=== PATIENT | female | born 1975 | race Caucasian/White ===

== ENCOUNTER 2019-05-05 17:14 | Outpatient (CLI) | payer OTHER, SELFPAY ==
--- NOTE | ~2019-05-05 | MM_ITS ---
EXAMINATION: MM screening [facility] BI w veda HISTORY: Screening mammogram TECHNIQUE: Craniocaudal and mediolateral oblique 3-D tomosynthesis images were obtained and synthetic 2-D images were generated. CAD analysis was submitted and interpreted. COMPARISON: 04/02/2018, 03/28/2017, 07/02/2014 BREAST PARENCHYMAL COMPOSITION: The breasts are extremely dense, which lowers the sensitivity of mamm ography. FINDINGS: RIGHT BREAST: There is a possible obscured mass in the middle third of the outer breast best apprecia christopher 6 cm from the nipple on craniocaudal tomosynthesis image 8/80. LEFT BREAST: There is no evidence of suspicious mass, calcification, or architectural distortion to s uggest malignancy. There has been no significant interval change. IMPRESSION: 1. Possible right breast mass. 2. Additional mammographic views and possible breast ultrasound are recommended. BI-RADS Category 0: Incomplete: Needs additional imaging evaluation. Reviewed, dictated and finalized at location A. RGLASS ROVING WINDER IMPRESSION: 1. Possible right breast mass. 2. Additional mammographic views and possible breast ultrasound are recommended . BI-RADS Category 0: Incomplete: Needs additional imaging evaluation.
== END 2019-05-05 17:15 | disposition home or self-care (01) ==
LOC: ANHIMG 17:16
PROVIDERS: PCP Family Medicine; Visit Provider Obstetrics & Gynecology Gynecology
DX: Z12.31 Encounter for screening mammogram for malignant neoplasm of breast (principal); R92.8 Other abnormal and inconclusive findings on diagnostic imaging of breast
CPT/HCPCS: 77063; 77067

== ENCOUNTER 2019-05-19 13:58 | Outpatient (CLI) | payer OTHER, SELFPAY ==
--- NOTE | ~2019-05-19 | MMUS_ITS ---
EXAMINATION: MM diagnostic mammo unilat RT, US breast RT limited HISTORY: Possible right breast mass on screening mammogram TECHNIQUE: Additional 3-D tomosynthesis images of the right breast were performed and synthetic 2-D i mages were generated. CAD analysis was submitted and interpreted. High resolution limited right breas t ultrasound was performed. COMPARISON: 05/05/2019, 04/02/2018, 03/28/2017 FINDINGS: MAMMOGRAPHIC FINDINGS: There is a 2.7 x 1.1 cm oval, obscured, low density mass in the middle third of the outer breast at t he 9:00 location 6 cm from the nipple. No suspicious architectural distortion or calcification are id entified. ULTRASOUND: There are multiple adjacent cysts at the 9:00 location 4 cm from the nipple corresponding to the mamm ographic finding in question. The largest measures up to 10 mm. There is a 7 mm x 4 mm oval, circumsc ribed, parallel, hypoechoic mass with no internal vascularity at the 9:00 location 4 cm from the nipp le. This appears to demonstrate posterior acoustic enhancement. IMPRESSION: 1. Multiple adjacent right breast cysts accounting for the mammographic finding in question. One mass at the 9:00 location 4 cm from the nipple has sonographic features suggestive of a complicated cyst. 2. Recommend 6 month follow-up targeted right breast ultrasound. BI-RADS category 3, probably benign findings. Reviewed, dictated and finalized at location A. SIVE SPRAYER IMPRESSION: 1. Multiple adjacent right breast cysts accounting for the mammographic finding in question. One mass at the 9:00 location 4 cm from the nipple has sonographi c features suggestive of a complicated cyst. 2. Recommend 6 month follow-up targeted right breast ultrasound. BI-RADS category 3, probably benign findings.
== END 2019-05-19 13:59 | disposition home or self-care (01) ==
LOC: ANHIMG 14:01
PROVIDERS: PCP Family Medicine; Visit Provider Obstetrics & Gynecology Gynecology
DX: R92.8 Other abnormal and inconclusive findings on diagnostic imaging of breast (principal)
CPT/HCPCS: 76642; 77065

== ENCOUNTER 2020-01-07 06:56 | Outpatient (NON) | payer OTHER, SELFPAY ==
[2020-01-08 13:59] LABS: SARS-CoV-2 RNA PCR Negative
== END 2020-01-07 06:57 ==
PROVIDERS: PCP Family Medicine; Visit Provider Physician Assistant
DX: Z20.828 Contact with and (suspected) exposure to other viral communicable diseases (principal); R09.81 Nasal congestion
CPT/HCPCS: 87635; C9803; U0003

== ENCOUNTER 2020-01-19 14:25 | Outpatient (CLI) | payer OTHER, SELFPAY ==
--- NOTE | ~2020-01-19 | US_ITS ---
US breast RT limited DATE: 01/19/2020 14:53 INDICATION: Six-month follow-up of 05/19/2019 and multiple adjacent right breast cysts including compl icated cyst at 9:00 TECHNIQUE: High-resolution ultrasound imaging targeted at 9:00 4 cm from nipple COMPARISON: 05/19/2019 limited right breast ultrasound FINDINGS: Multiple stable adjacent breast cysts individually measuring under 12 mm are again noted, w ith through transmission and posterior enhancement, no internal vascularity. No suspicious solid lesi on or shadowing is detected. IMPRESSION: BI-RADS Category 2: Benign Recommendation: Routine mammographic screening Reviewed, dictated and finalized at Location A. Reviewed, dictated and finalized at location A.
== END 2020-01-19 14:26 | disposition home or self-care (01) ==
LOC: ANHIMG 14:27
PROVIDERS: PCP Family Medicine; Visit Provider Obstetrics & Gynecology Gynecology
DX: R92.8 Other abnormal and inconclusive findings on diagnostic imaging of breast (principal)
CPT/HCPCS: 76642

== ENCOUNTER 2020-02-24 11:40 | Outpatient (NON) | payer OTHER, SELFPAY ==
[2020-02-26 17:04] LABS: SARS-CoV-2 RNA PCR Negative
== END 2020-02-24 11:41 ==
LOC: ANHCOVIDDT 11:41
PROVIDERS: PCP Family Medicine; Visit Provider Nurse Practitioner Family
DX: R05 Cough (principal); Z20.828 Contact with and (suspected) exposure to other viral communicable diseases
CPT/HCPCS: 87635; C9803; U0003

== ENCOUNTER 2020-09-06 08:18 | Outpatient (CLI) | payer OTHER, SELFPAY ==
--- NOTE | ~2020-09-06 | MM_ITS ---
EXAMINATION: MM screening [facility] BI w veda HISTORY: Screening mammogram TECHNIQUE: Craniocaudal and mediolateral oblique 3-D tomosynthesis images were obtained and synthetic 2-D images were generated. CAD analysis was submitted and interpreted. COMPARISON: 05/19/2019 diagnostic right mammogram and limited right breast ultrasound 05/05/2019, 04/02/2018, 03/28/2017 bilateral digital screening mammogram examinations BREAST PARENCHYMAL COMPOSITION: The breasts are extremely dense, which lowers the sensitivity of mamm ography. FINDINGS: Stable mild fibroglandular asymmetry. There is no evidence of suspicious mass, calcificatio n, or architectural distortion to suggest malignancy in either breast. There has been no suspicious i nterval change. IMPRESSION: 1. No mammographic evidence of malignancy. 2. Recommend routine screening mammography in one year. BI-RADS Category 2: Benign finding(s). Reviewed, dictated and finalized at location A.
== END 2020-09-06 08:19 | disposition home or self-care (01) ==
LOC: ANHIMG 08:21
PROVIDERS: PCP Family Medicine; Visit Provider Obstetrics & Gynecology Gynecology
DX: Z12.31 Encounter for screening mammogram for malignant neoplasm of breast (principal)
CPT/HCPCS: 77063; 77067

== ENCOUNTER 2021-09-07 16:16 | Outpatient (CLI) | payer OTHER, SELFPAY ==
--- NOTE | ~2021-09-07 | MM_ITS ---
EXAMINATION: MM screening [facility] BI w veda HISTORY: Screening mammogram TECHNIQUE: Craniocaudal and mediolateral oblique 3-D tomosynthesis images were obtained and synthetic 2-D images were generated. CAD analysis was submitted and interpreted. COMPARISON: 09/06/2020, 05/19/2019, 05/05/2019 BREAST PARENCHYMAL COMPOSITION: The breasts are extremely dense, which lowers the sensitivity of mamm ography. FINDINGS: There is no suspicious mass, calcification, or architectural distortion to suggest malignan cy in either breast. There has been no suspicious interval change. IMPRESSION: 1. No mammographic evidence of malignancy. 2. Recommend routine screening mammography in one year. BI-RADS Category 1: Negative Reviewed, dictated and finalized at location A.
== END 2021-09-07 16:17 | disposition home or self-care (01) ==
LOC: ANHIMG 16:19
PROVIDERS: PCP Family Medicine; Visit Provider Obstetrics & Gynecology Gynecology
DX: Z12.31 Encounter for screening mammogram for malignant neoplasm of breast (principal)
CPT/HCPCS: 77063; 77067

== ENCOUNTER 2021-10-13 10:46 | Outpatient (NON) | payer OTHER, SELFPAY ==
[2021-10-13 14:06] LABS: Crystals Synovial Fluid None Seen (None Seen)
[2021-10-13 14:07] LABS: Color Synovial Fluid Yellow (Colorless); Source Synovial Fluid Synovial fluid
[2021-10-13 14:08] LABS: Appearance Synovial Fluid Cloudy (Clear); Lymphocytes Synovial Fluid 9 %; Monocytes Synovial Fluid 1 %; Neutrophils Synovial Fluid 90 % (0-25); Nucleated Cell Synovial Fluid 8419 /uL (0-200); RBC Synovial Fluid 7710 /uL (0-0)
== END 2021-10-13 10:47 | disposition home or self-care (01) ==
PROVIDERS: PCP Family Medicine; Visit Provider Orthopaedic Surgery
DX: M25.562 Pain in left knee (principal)
CPT/HCPCS: 87070; 87075; 87205; 89051; 89060

== ENCOUNTER 2021-12-28 11:22 | Day surgery (SDC) | payer OTHER, SELFPAY ==
[2021-12-19 08:23] VITALS: BMI 33.9
[2021-12-28 11:45] VITALS: BP 133/89; PULSE 69; RESP 18; TEMP 36.6; O2SAT 100
[2021-12-28 12:01] VITALS: BMI 32.5
--- NOTE | 2021-12-28 12:03 | P.PNAN_ITS ---
Anes - Initial Pre Proc Eval Procedure: Operation Date: 12/28/21 13:00 Proposed Procedures p Screening Colonoscopy - Anthony Abrams MD Date/Time: 12/28/21 12:03 Surgeon: Anthony Abrams MD Pre Op Diagnosis: Neoplasm screening Patient Data Age: 46 Gender: F Height: 1.65 m Weight: 88.9 kg Allergies Allergy/AdvReac Type Severity Reaction Status Date / Time Sulfa (Sulfonamide Allergy Mild Hives Verified 12/28/21 11:57 Antibiotics) Home Medications Medication Instructions Recorded Confirmed Type sodium sul 1.479 gram-potas ch See Rx Instructions PO PER PKG DIR 09/04/21 12/19/21 Rx 0.188 gram-magnes sul 0.225 gram #24 tabs tablet (Sutab) lisinopril 10 mg tablet 10 mg PO DAILY 12/19/21 12/28/21 History Patient hx anesthesia problems: none Family hx anesthesia problems: none Results Review: All pre-operative results and documents have been reviewed as part of the pre- operative evaluation. [facility], [facility] Past Medical History Medical History Arthritis HTN (hypertension) Surgical History Surgical History H/O section H/O sinus surgery H/O sinus surgery Previous section Family History Family History Father Family history of cardiovascular disease Diabetes mellitus Grandparent Hypertension Father Cerebrovascular accident Grandparent Cerebrovascular accident Grandparent CHF (congestive heart failure) Grandparent Diabetes mellitus Grandparent Cerebrovascular accident Social History Social History Smoking status: Never smoker Alcohol intake: current Substance use: never Substance use type: does not use Living arrangements: with family Gender identity (if verbalized by the patient): Female Spiritual care concerns: No Anes - Eval Final PreProcedure Day of Procedure 12/28/21 12:03 Patient weight: obese Heart: regular rate and rhythm Lungs: clear to auscultation Airway: Mallampati scale class II Last oral intake: >/= 8 hours ASA classification: II Emergent: no Anesthetic plan: proceed Anesthesia type and monitoring: general GIVS and standard monitoring Results Review: All pre-operative results and documents have been reviewed as part of the pre- operative evaluation. Informed Consent: The patient's anesthetic plan and its attendant risks and benefits were discussed with the patient/family/POA. Questions were solicited and answers provided to the satisfaction of the patient/family/POA.
[2021-12-28] MEDS: LACTATED RINGERS 1,000 ML 150 ML IV CONT (12:06)
--- NOTE | 2021-12-28 12:20 | P.HP_ITS ---
History of Present Illness History of Present Illness Consent: Risks, benefits, and alternatives have been discussed and questions answered. Patient agrees to proceed with procedure. Chief complaint: Neoplasm screening Narrative: Omayra Delanye is a 46 year old female Presents for screening colonoscopy. Patient's current weight appetite and bowel movements are normal. Patient denies abdominal pain. She has had no bleeding. Family history is noncontribut ory. She presents today for neoplasia screening colonoscopy. Review of Systems Review of Systems: Review of systems noncontributory. [facility] Past Medical History Medical History Arthritis HTN (hypertension) Surgical History Surgical History H/O section H/O sinus surgery H/O sinus surgery Previous section Family History Family History Father Family history of cardiovascular disease Diabetes mellitus Grandparent Hypertension Father Cerebrovascular accident Grandparent Cerebrovascular accident Grandparent CHF (congestive heart failure) Grandparent Diabetes mellitus Grandparent Cerebrovascular accident Social History Social History Smoking status: Never smoker Alcohol intake: current Substance use: never Substance use type: does not use Living arrangements: with family Gender identity (if verbalized by the patient): Female Spiritual care concerns: No Meds Home Medications and Allergies Home Medications Medication Instructions Recorded Confirmed Type sodium sul 1.479 gram-potas ch See Rx Instructions PO PER PKG DIR 09/04/21 12/19/21 Rx 0.188 gram-magnes sul 0.225 gram #24 tabs tablet (Sutab) lisinopril 10 mg tablet 10 mg PO DAILY 12/19/21 12/28/21 History Allergies Allergy/AdvReac Type Severity Reaction Status Date / Time Sulfa (Sulfonamide Allergy Mild Hives Verified 12/28/21 11:57 Antibiotics) Vital Signs Vital Signs - 24 hr 12/28/21 11:45 Temperature 97.9 F Pulse Rate 69 Respiratory Rate 18 Blood Pressure 133/89 Pulse Oximetry 100 Oxygen Delivery Room Air Exam Narrative: Physical exam reveals patient to be alert. Vital signs stable. HEENT exam is unremarkable. Patient is anicteric. Lungs are clear to auscultation and percussion. Heart is without murmur or extra sounds. Abdomen bowel sounds present soft nontender with no organomegaly. Digital external rectal exam is normal. Assessment and Plan Assessment and plan (1) Encounter for screening colonoscopy: Code(s): Z12.11 - Encounter for screening for malignant neoplasm of colon Status: Acute Assessment and Plan: Patient presents for screening colonoscopy. Appears to be at average risk for colon polyps. Further recommendations may be given after endoscopy.
[2021-12-28 13:00] VITALS: BP 113/69; PULSE 61; RESP 18; O2SAT 100
[2021-12-28 13:10] VITALS: BP 118/76; PULSE 62; RESP 18; O2SAT 100
--- NOTE | 2021-12-28 13:13 | WPDANESPN ---
Anes - Prog Note Post-Op Date/Time: 12/28/21 13:13 Cardiovascular status: normal Respiratory status: normal Airway patency: baseline Mental status: baseline Post-Op hydration status: normal Vital Signs: Last Vital Signs Temp 36.6 C 12/28/21 11:45 Pulse 69 12/28/21 11:45 Resp 18 12/28/21 11:45 BP 133/89 12/28/21 11:45 Pulse Ox 100 12/28/21 11:45 O2 Del Method Room Air 12/28/21 11:45 Pain Score (VAS): 0 I/O: Intake & Output 12/27/21 12/28/21 12/28/21 23:59 07:59 15:59 Intake Total 200 Balance 200 Patient Feedback: Patient satisfied with anesthetic care.
[2021-12-28 13:20] VITALS: BP 125/72; PULSE 74; RESP 18; O2SAT 100
== END 2021-12-28 13:34 | disposition home or self-care (01) ==
PROVIDERS: Visit Provider Internal Medicine Gastroenterology
PROC: 0DJD8ZZ Inspection of Lower Intestinal Tract, Via Natural or Artificial Opening Endoscopic (ICD-10-PCS; CPT 45378; principal; 2021-12-28 13:00)
DX: Z12.11 Encounter for screening for malignant neoplasm of colon (principal)
CPT/HCPCS: 45378

== ENCOUNTER 2022-11-23 21:40 | Emergency (ER) | payer OTHER, SELFPAY ==
[2022-11-23 21:51] VITALS: BP 114/61; PULSE 69; RESP 18; TEMP 36.4; O2SAT 100
--- NOTE | 2022-11-24 00:36 | PC.NURSE ---
Patient approached intake desk and informed database report writer that she is feeling better and doesn't want to be seen anymore. Glass Presser removed patient's EMS IV intact. Patient alert and ambulatory out of ED doors with her .
== END 2022-11-24 00:36 | disposition left against medical advice (07) ==
LOC: ANHED 11-24 00:38
PROVIDERS: PCP Family Medicine
DX: R55 Syncope and collapse (principal)
CPT/HCPCS: 99199

== ENCOUNTER 2023-04-06 07:44 | Outpatient (CLI) | payer OTHER, SELFPAY ==
--- NOTE | ~2023-04-06 | MM_ITS ---
EXAMINATION: MM screening [facility] BI w veda HISTORY: Screening mammogram TECHNIQUE: Craniocaudal and mediolateral oblique 3-D tomosynthesis images were obtained and synthetic 2-D images were generated. CAD analysis was submitted and interpreted. COMPARISON: 09/07/2021, 09/06/2020, 05/19/2019, 05/05/2019 BREAST PARENCHYMAL COMPOSITION: The breasts are extremely dense, which lowers the sensitivity of mamm ography. FINDINGS: RIGHT BREAST: An asymmetry is present in the far posterior third of the lower breast 10 cm from the n ipple on the mediolateral oblique view. LEFT BREAST: No suspicious mass, calcification, or architectural distortion are identified to suggest malignancy. There has been no suspicious interval change. IMPRESSION: 1. Right breast asymmetry. 2. Additional mammographic views and possible breast ultrasound are recommended. BI-RADS Category 0: Incomplete: Needs additional imaging evaluation. Reviewed, dictated and finalized at location A. ERN CARRIER IMPRESSION: 1. Right breast asymmetry. 2. Additional mammographic views and possible breast ultrasound are recommended . BI-RADS Category 0: Incomplete: Needs additional imaging evaluation.
== END 2023-04-06 07:45 | disposition home or self-care (01) ==
PROVIDERS: PCP Family Medicine; Visit Provider Obstetrics & Gynecology Gynecology
DX: Z12.31 Encounter for screening mammogram for malignant neoplasm of breast (principal); R92.8 Other abnormal and inconclusive findings on diagnostic imaging of breast
CPT/HCPCS: 77063; 77067

== ENCOUNTER 2023-05-03 09:57 | Outpatient (CLI) | payer OTHER, SELFPAY ==
--- NOTE | ~2023-05-03 | MMUS_ITS ---
EXAMINATION: MM diagnostic [facility] RT w veda, US breast RT complete HISTORY: Abnormal mammogram. TECHNIQUE: Additional 3-D tomosynthesis images of the right breast were performed and synthetic 2-D i mages were generated. CAD analysis was submitted and interpreted. High resolution complete right [address] st ultrasound was performed. COMPARISON: Comparison to multiple prior studies sequentially, with oldest reviewed study dated 05/2018. BREAST PARENCHYMAL COMPOSITION: Dense: The breasts are extremely dense, which lowers the sensitivity of mammography. FINDINGS: MAMMOGRAPHIC FINDINGS: There are no suspicious masses, calcifications or architectural distortion in the right breast to sug gest malignancy. There is focal superimposed fibroglandular content in the lower posterior aspect of the right breast on MLO and medial lateral view. ULTRASOUND: Complete dorsally US of all 4 quadrants of the right breast and retroareolar region was reviewed. The re are multiple cysts scattered throughout the right breast, largest measuring 9 mm. No suspicious ma sses to suggest malignancy. IMPRESSION: 1. No evidence for malignancy in the right breast. Benign findings. 2. Routine yearly screening mammogram and regular clinical breast examination are recommended. BI-RADS Category 2: Benign finding(s). Reviewed, dictated and finalized at location A. HANDISE ASSOCIATE IMPRESSION: 1. No evidence for malignancy in the right breast. Benign findings. 2. Routine yearly screening mammogram and regular clinical breast examination a re recommended. BI-RADS Category 2: Benign finding(s).
== END 2023-05-03 09:58 | disposition home or self-care (01) ==
LOC: ANHIMG 09:59
PROVIDERS: PCP Family Medicine; Visit Provider Obstetrics & Gynecology Gynecology
DX: R92.8 Other abnormal and inconclusive findings on diagnostic imaging of breast (principal)
CPT/HCPCS: 76641; 77061; 77065; G0279

== ENCOUNTER 2023-07-09 08:48 | Emergency (ER) | payer OTHER, SELFPAY ==
[2023-07-09 09:03] VITALS: BP 141/82; PULSE 77; RESP 16; TEMP 36.4; O2SAT 98
--- NOTE | 2023-07-09 09:44 | ED.URI ---
HPI - URI/Sore Throat General Chief Complaint: Upper Respiratory Infection Stated Complaint: Cough/Nausea/Fatigue Time Seen by Provider: 07/09/23 09:29 Source: patient, RN notes reviewed and old records reviewed Mode of arrival: ambulatory Limitations: no limitations History of Present Illness HPI Narrative: 48-year-old female who presents to [facility] care with complaints of dry cough,congestion and fatigue on last week 6 days ago which continues with body aches, nausea, and felt feverish starting on Saturday. Patient reports that she took a home COVID test on Saturday which was negative. Patient reports that she has felt some dizziness the past few days also with cough and exertion. Patient reports that she has been taking katlin selzer cold and flu for her symptoms. 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 MD elicited complaint: cough, rhinorrhea, nasal congestion and other ( body aches,fatigue) Pertinent past history: sinusitis and other (sinus problems) Onset (ago): day(s) (6) Pain scale (0-10): 4 Description of mucous: clear Able to tolerate fluids by mouth: Yes Treatments prior to arrival: other (Zyrtec, katlin [place] cold and flu) Related Data Allergies Allergy/AdvReac Type Severity Reaction Status Date / Time Sulfa (Sulfonamide Allergy Mild Hives Verified 07/09/23 09:21 Antibiotics) Review of Systems Review of Systems: CONSTITUTIONAL: reports malaise, chills, sweats, no recorded fever. but has felt feverish EYES: Denies visual changes, redness, or discharge. ENT: Reports rhinorrhea, congestion, sinus pain, no otalgia and no sore throat. CARDIOVASCULAR: Denies chest pain, palpitations, or edema. RESPIRATORY: Reports cough.? Denies dyspnea. GASTROINTESTINAL: Denies abdominal pain, nausea, vomiting, diarrhea SKIN: Denies rash or itching. MUSCULOSKELETAL: Reports myalgia. NEUROLOGIC: Denies headache.some dizziness reported All systems reviewed & are unremarkable except as noted in HPI and below PMFSH Past Medical History Medical History (Updated 07/10/23 @ 16:15 by Carmencita Miles NP) Arthritis History of sinus problem HTN (hypertension) Surgical History Surgical History H/O section H/O sinus surgery H/O sinus surgery Previous section Family History Family History Father Family history of cardiovascular disease Diabetes mellitus Grandparent Hypertension Father Cerebrovascular accident Grandparent Cerebrovascular accident Grandparent CHF (congestive heart failure) Grandparent Diabetes mellitus Grandparent Cerebrovascular accident Social History Social History Smoking status: Never smoker Alcohol intake: current Substance use: never Substance use type: does not use Living arrangements: with family Occupation/Education: occupation Gender identity (if verbalized by the patient): Female Spiritual care concerns: No Comments At time of signature, agree with nursing past medical, surgical, social and family history. There is no relevant family history pertinent to the presenting complaint Exam Narrative: GENERAL: Well-appearing, well-nourished, and in no acute distress. HEAD: Normocephalic EYES: PERRLA, conjunctivae clear ENT: Nares clear, turbinates edematous and erythematous, clear discharge. Mucous membranes moist. TM pearly hopper with dull light reflex bilaterally; no tragal tenderness. Oropharynx erythematous without lesions. Tonsils not enlarged and without exudate, no drooling, no hoarseness, no trismus, uvula midline.post nasal drainage noted NECK: Supple. No lymphadenopathy CHEST: Clear to auscultation, breath sounds equal. No wheezing, rhonchi, rales, or stridor. No respiratory distress, speaks in full sentences.cough S
== END 2023-07-09 10:14 | disposition home or self-care (01) ==
PROVIDERS: Emergency Provider Registered Nurse; PCP Family Medicine
DX: R05.1 Acute cough (principal); J06.9 Acute upper respiratory infection, unspecified; Z20.822 Contact with and (suspected) exposure to COVID-19; M19.90 Unspecified osteoarthritis, unspecified site; I10 Essential (primary) hypertension
CPT/HCPCS: 87426; 87804; 99213; G0463

== ENCOUNTER 2024-04-09 16:08 | Outpatient (CLI) | payer OTHER, SELFPAY ==
--- NOTE | ~2024-04-09 | MM_ITS ---
EXAMINATION: MM screening [facility] BI w veda HISTORY: Screening TECHNIQUE: Craniocaudal and mediolateral oblique 3-D tomosynthesis images were obtained and synthetic 2-D images were generated. CAD analysis was submitted and interpreted. COMPARISON: Comparison to multiple prior studies sequentially, with oldest reviewed study dated 07/2019. BREAST PARENCHYMAL COMPOSITION: Dense: The breasts are extremely dense, which lowers the sensitivity of mammography. FINDINGS: There are developing asymmetries in the upper outer quadrant of the left breast, middle thi rd. There is developing asymmetry medially in the right breast on CC view. IMPRESSION: 1. Developing bilateral breast asymmetries. 2. Additional mammographic views and possible breast ultrasound are recommended. BI-RADS Category 0: Incomplete: Needs additional imaging evaluation. Reviewed, dictated and finalized at location B. SHIFTER IMPRESSION: 1. Developing bilateral breast asymmetries. 2. Additional mammographic views and possible breast ultrasound are recommended . BI-RADS Category 0: Incomplete: Needs additional imaging evaluation.
== END 2024-04-09 16:09 | disposition home or self-care (01) ==
LOC: ANHIMG 16:09
PROVIDERS: PCP Family Medicine; Visit Provider Obstetrics & Gynecology Gynecology
DX: Z12.31 Encounter for screening mammogram for malignant neoplasm of breast (principal); R92.8 Other abnormal and inconclusive findings on diagnostic imaging of breast
CPT/HCPCS: 77063; 77067

== ENCOUNTER 2024-04-28 12:42 | Outpatient (CLI) | payer OTHER, SELFPAY ==
--- NOTE | ~2024-04-28 | MMUS_ITS ---
EXAMINATION: US breast BI complete, MM diagnostic khoi BI w veda HISTORY: Follow-up bilateral breast asymmetries TECHNIQUE: Additional 3-D tomosynthesis images of the breasts were performed and synthetic 2-D images were generated. CAD analysis was submitted and interpreted. High resolution bilateral complete breas t ultrasound was performed. COMPARISON: Comparison to multiple prior studies sequentially, with oldest reviewed study dated 05/2018. BREAST PARENCHYMAL COMPOSITION: Dense: The breasts are heterogeneously dense, which may obscure small masses FINDINGS: MAMMOGRAPHIC FINDINGS: Focal asymmetry medially in the right breast on CC view is less apparent with spot compression views. No discrete mass identified. No architectural distortion or suspicious calcifications. Left breast a symmetries in the upper outer quadrant of the left breast are less apparent with spot compression vie ws, likely superimposed fibroglandular tissue. No discrete mass or architectural distortion. ULTRASOUND: Complete US of all 4 quadrants of the breast/s and retroareolar region was reviewed. Right breast: There are multiple cysts of the right breast. At 3:00, 2 cm from the nipple there is an oval parallel oriented mass measuring 9 mm with internal soft tissue component. No internal vascular ity or posterior features. At 9:00, 4 cm from the nipple there is oval hypoechoic mass with low level internal echoes measuring 5 mm cyst. Left breast: There are multiple cysts of the left breast. No suspicious masses to suggest malignancy. IMPRESSION: 1. Probable benign right breast masses at 3:00, 2 cm from the nipple and 9:00, 4 cm from the nipple. No evidence for malignancy in the left breast. 2. Recommend 6 month follow-up diagnostic right mammogram and Limited right breast ultrasound BI-RADS category 3, probably benign findings. Reviewed, dictated and finalized at location A. AND DETONATOR IMPRESSION: 1. Probable benign right breast masses at 3:00, 2 cm from the nipple and 9:00, 4 cm from the nipple. No evidence for malignancy in the left breast. 2. Recommend 6 month follow-up diagnostic right mammogram and Limited right nicole ast ultrasound BI-RADS category 3, probably benign findings.
--- OUTSIDE RECORDS SUMMARY | 2024-04-28 13:17 | XMS_ITS | Clinical Summary ---
Author Organization [facility] Address [address] [place] [address] Care Team Providers Care Ski Top Trimmer Name Role Phone Néstor Ruiz MD, Miguel Logan Primary Care Provi sylvain Unavailable Source Comments [facility],non-owned Affiliates and Associated Physician Practices is amultiple site organization consisting of ambulatory clinics and hospital sitesin [place], [place], [place] and [place]. This disclosure is being madepursuant to the Care Everywhere program and may not contain all information available regarding this patient. Last updated 17.[facility] Allergies Active Allergy Reactions Criticality Noted Date Comments Sulfa Drugs Rash Medium 05/21/2017 Medications Be aware that medications may not be up to date on this document. Always verify current medications with the patient. No known medications Family History Medical History Relation Name Comments Diabetes - Type 2 Father Relation Name Status Comments Father Mother Alive Social History Tobacco Use Types Packs/Day Years Used Date Smoking Tobacco: Never Smokeless Tobacco: Never Sex and Gender Information Value Date Recorded Sex Assigned at Not on file Gender Identity Not on file Sexual Orientation Not on file Last Filed Vital Signs Vital Sign Reading Time Taken Comments Blood Pressure 120/88 10/16/2018 2:06 PM CDT Pulse 75 10/16/2018 2:06 PM CDT Temperature 37.2 ??C (98.9 ??F) 10/16/2018 2:06 PM CD T Respiratory Rate 16 10/16/2018 2:06 PM CDT Oxygen Saturation 98% 10/16/2018 2:06 PM CDT Inhaled Oxygen Concentration - - Weight 85.7 kg (189 lb) 10/16/2018 2:06 PM CDT Height 163.8 cm (5' 4.5 ) 10/16/2018 2:06 PM CDT Body Mass Index 31.94 10/16/2018 2:06 PM CDT Plan of Treatment Health Maintenance Due Date Last Done Comments COLOGUARD (AGES 45-75) - COL ON CA SCREENING 1976 COLON MONITORING 1976 COLONOSCOPY - COLON CA SCREENING 1976 CT COLONOGRAPHY - COLON CA SCREENING 1976 Colorectal Cancer Screening 1976 FIT - COLON CA SCREENING 1976 FLEX SIG - COLON CA SCREENING 1976 LIPID TESTING 1976 MAMMOGRAM 1976 PAP SMEAR 1976 HIV SCREENING 01/21/1991 HEPATITIS C SCREENING 01/17/1994 DTAP/TDAP/TD VACCINES (1 - Tdap) 01/21/1995 HEPATITIS B VACCINE (1 of 3 - 19+ 3-dose series) 01/21/1995 SCREENING FOR DIABETES 10/16/2018 COVID-19 VACCINE (1 - 2023-2 5 season) 2023 INFLUENZA VACCINE (#1) 2023 DEPRESSION SCREENING 04/01/2024 ZOSTER VACCINE (1 of 2) 01/21/2026 HIB VACCINE Aged Out No longer eligi ble based on patient's age to complete this topic HPV VACCINE Aged Out No longer eligi ble based on patient's age to complete this topic MENINGOCOCCAL (Group B) VACCINE Aged Out No longer eligible based on patient's age to complete this topic MENINGOCOCCAL VACCINE Aged Out No ramya capo eligible based on patient's age to complete this topic PNEUMOCOCCAL VACCINE Aged Out No long er eligible based on patient's age to complete this topic Care Teams Ski Top Trimmer Relationship Specialty Start Date End Date Miguel Palm Jr., MD PCP - General 09/15/19
--- OUTSIDE RECORDS SUMMARY | 2024-04-28 13:17 | XMS_ITS | Patient Health Summary ---
Author Organization [facility] [employer] Address [address] [place] [address] Care Team Providers Care Wire Drawing Die Maker Name Role Phone Néstor Ruiz MD, Miguel Logan Primary Care Provi sylvain Unavailable Note from [facility],non-owned Affiliates and Associated Physician Practices is amultiple site organization consisting of ambulatory clinics and hospital sitesin [place], [place], [place] and [place]. This disclosure is being madepursuant to the Care Everywhere program and may not contain all information available regarding this patient. Last updated 17.[facility] Allergies * Sulfa Drugs(Rash) -Medium Criticality Medications Be aware that medications may not be up to date on this document. Always verify current medications with the patient. No known medications Social History Tobacco Use Types Packs/Day Years [...] Mass Index 31.94 10/16/2018 2:06 PM CDT Procedures * STREP A SCREEN - POINT OF CARE (AMB) STL(Performed 10/16/2018) Performed for Acute pharyngitis, unspecified etiology * INFLUENZA A+B - POINT OF CARE (AMB)(Performed 05/21/2017) Performed for Nasopharyngitis acute * CULTURE RESPIRATORY UPPER(Performed 05/21/2017) Performed for Nasopharyngitis acute * STREP A SCREEN - POINT OF CARE (AMB) STL(Performed 05/21/2017) Performed for Nasopharyngitis acute * CT FACIAL BONES WO CONTRAST(Performed 12/09/2013) * CT FACIAL BONES WO CONTRAST(Performed 06/10/2013) * PATHOLOGY TISSUE(Performed 03/17/2013) * HCG BLOOD QUALITATIVE(Performed 03/17/2013) * PATHOLOGY/GENETICS HISTORICAL-ONBASE(Performed 03/17/2013) * PROTEIN ELECTROPHORESIS WO INTERP BLOOD(Performed 02/25/2013) * PATHOLOGY TISSUE(Performed 02/09/2013) * CULTURE FUNGUS OTHER+FUNGUS SMEAR(Performed 02/09/2013) * CULTURE ANAEROBE(Performed 02/09/2013) * CULTURE AEROBIC(Performed 02/09/2013) * FUNGUS SMEAR(Performed 02/09/2013) * GRAM STAIN SMEAR(Performed 02/09/2013) * HCG BLOOD QUALITATIVE(Performed 02/09/2013) * PATHOLOGY/GENETICS HISTORICAL-ONBASE(Performed 02/09/2013) Results * STREP A SCREEN - POINT OF CARE (AMB) STL (10/16/2018) Only the most recent of2 resultswithin the time period is included. Strep A Rapid POCT Negative Negative Strep A Internal Control Present Lot # [id number] Expiration Date 02 29 2020 Throat ENTIRE THROAT (SURFACE REGION OF NECK) / Unknown 10/16/2018 Alexander Burgess APRN-PEDIATRIC SURGEON LAB - POINT OF CA RE ORDERABLES * INFLUENZA A+B - POINT OF CARE (AMB) (05/21/2017 12:00 PM HEMODIALYSIS CHARGE NURSE) Influenza A Antigen Rapid Negative Negative Influenza B Antigen Rapid Negative Negative Influenza Internal Control present NEGATIVE - POSITIVE Influenza Lot Number [id number] Influenza Expiration Date 01 21 2019 Other NASOPHARYNGEAL SWAB / Unknown 05/21/2017 12:00 PM HEMODIALYSIS CHARGE NURSE Alexander Burgess APRN-PEDIATRIC SURGEON LAB - POINT OF CA RE ORDERABLES * CULTURE RESPIRATORY UPPER (05/21/2017 11:59 AM HEMODIALYSIS CHARGE NURSE) Upper Respiratory Culture Final report [facility] ACCOUNT BILL Result 1 [facility] ACCOUNT BILL Comment:Routine respiratory marion Microbiology ENTIRE THROAT (SURFACE REGION OF NECK) / Unknown 05/21/2017 11:59 AM HEMODIALYSIS CHARGE NURSE 05/21/2017 Narrative Resulting Agency Comment [facility] [address] ??[facility] [phone] Alexander Burgess APRN-PEDIATRIC SURGEON LAB - MICROBIOLOG Y ORDERABLES [facility] ACCOUNT BILL [address] [place] [address] * CT FACIAL BONES WO CONTRAST (12/09/2013 12:47 PM CDT) Only the most recent of2 resultswithin the time period is included. Anatomical Region Laterality Modality Head Other Impressions 12/09/2013 4:08 PM CDT IMPRESSION: 1. Unchanged post operative appearance of Meza-Sukhi approach right maxillary antrostomy for removal of a reported right maxillary odontogenic keratocyst as described above. This report was approved ??by Carey Livingston M.D. ?? on 12/09/2013 2:07 PM . I, Dr. ANUEL ELIZALDE M.D. have personally reviewed and interpreted this examination/study. This report was electronically signed by ANUEL ELIZALDE M.D. ??on 12/09/2013 4:08 PM . 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 TECHNIQUE: CT of the maxillofacial bones, orbits, and paranasal sinuses was performed without contrast according to standard protocol. FINDINGS: Comparison is made to prior study dated 06/10/2013. Postoperative appearance of Meza-Sukhi approach right maxillary antrostomy for removal of a reported right maxillary sinus odontogenic keratocyst demonstrates unchanged residual moderate mucosal thickening within the right maxillary sinus as well as residual thickening within the anterior right maxilla in continuity with the maxillary sinus likely representing granulation tissue or fibrosis with dystrophic calcification following resection. Small areas of dehiscence in the posterolateral wall of the right maxillary sinus with preserved fat in the adjacent buccal space are redemonstrated. The remaining paranasal sinuses are clear. The orbits appear normal. The mandible and temporomandibular joints appear normal. ??The nasal septum is midline. The left ostiomeatal unit is open. The mastoid air cells are clear. Procedure Note Anuel Elizalde MD - 06/29/2017 EXAMINATION: Computed tomography (CT) of the maxillofacial bones, orbits,and paranasal sinuses without contrast HISTORY: 38-year-old female with reported odontogenic keratocyst of theright maxillary sinus status post removal 03/17/2013. TECHNIQUE: CT of the maxillofacial bones, orbits, and paranasal sinuseswas performed without contrast according to standard protocol. FINDINGS: Comparison is made to prior study dated 06/10/2013. Postoperative appearance of Meza-Sukhi approach right maxillaryantrostomy for removal of a reported right maxillary sinus odontogenickeratocyst demonstrates unchanged residual moderate mucosal thickeningwithin the right maxillary sinus as well as residual thickening within the anterior right maxilla in continuity withthe maxillary sinus likely representing granulation tissue or fibrosiswith dystrophic calcification following resection. Small areas ofdehiscence in the posterolateral wall of the right maxillary sinus with preserved fat in the adjacent buccal space areredemonstrated. The remaining paranasal sinuses are clear. The orbitsappear normal. The mandible and temporomandibular joints appear normal.The nasal septum is midline. The left ostiomeatal unit is open. The mastoid air cells are clear. IMPRESSION IMPRESSION: 1. Unchanged post operative appearance of Meza-Sukhi approach rightmaxillary antrostomy for removal of a reported right maxillary odontogenickeratocyst as described above. This report was approved by Carey Livingston M.D. on 12/09/2013 2:07 PM. I, Dr. ANUEL ELIZALDE M.D. have personally reviewed and interpreted thisexamination/study. This report was electronically signed by ANUEL ELIZALDE M.D. on 12/09/20134:08 PM . Donta Orellana MD CT ORDERABLES * PATHOLOGY TISSUE (03/17/2013 9:33 AM HEMODIALYSIS CHARGE NURSE) Only the most recent of2 resultswithin the time period is included. AP Surg () [facility] Comment: CLINICAL HISTORY: The patient is a 38-year-old woman with history of sinus mass. FINAL DIAGNOSIS: BONE, ANTERIOR MAXILLA, BIOPSY (A): - ??BENIGN TOOTH, RIGHT MAXILLARY, EXCISION (B): - CARIES (GROSS ONLY) BONE, RIGHT MAXILLA, RESECTION (C): - ??BENIGN ODONTOGENIC CYST WITH FIBROSIS GROSS DESCRIPTION: The specimens are received in three containers for gross and microscopic examination, labeled with the patient's name Omayra Delaney . Specimen A anterior maxillary face content consists of multiple white to brown-suarez bony fragments and intermixed soft tissue with an aggregate measurement of 2.0 x 1.1 x 0.2 cm. ??The specimen is unoriented. ??It is wrapped in tissue paper and submitted in toto in cassette A1. Specimen B right maxillary tooth consists of a 1.5 x 1.0 x 0.7 cm white-suarez tooth and root with brown-suarez soft tissue and dental caries. ??This is for gross examination only. Specimen C right maxillary content consists of multiple soft, white-suarez, unoriented tissue fragments with an aggregate measurement of 6.0 x 4.5 x 0.5 cm. ??A veterans employment representative section is submitted in cassette C1. AJ/edk MICROSCOPIC DESCRIPTION: Specimen A shows a fragment of benign bone with normal trabeculae and osteocytes within their lacunae. ??There are no masses or bone sclerosis identified. Specimen C shows remnants of an odontogenic cyst surrounded by chronic inflammation and dense fibrotic tissue. ??There is no malignancy present. JOHN/SHERI/carlak The performance characteristics of all immunohistochemical and indirect immunofluorescence stains (if any) cited in this report were determined by the [facility] of [facility] in compliance with CLIA '88 regulations. ??Some of these tests rely on the use of analyte-specific reagents and are subject to specific labeling requirements by the FDA. ??Such tests were developed by the [facility] and have not been cleared or approved by the FDA. ??The FDA has determined that such clearance or approval is not necessary. These tests are used for clinical purposes and should not be regarded as investigational or for research. This case has been personally reviewed and interpreted by the attending (teaching) pathologist. Final Diagnosis performed by Luke Urbano MD. Electronically signed 03/20/2013 03/17/2013 9:33 AM HEMODIALYSIS CHARGE NURSE 03/17/2013 12:15 PM HEMODIALYSIS CHARGE NURSE Narrative [facility] - 03/20/2013 2:29 PM HEMODIALYSIS CHARGE NURSE PRE-OP DIAGNOSIS: ??Sinus mass 784.2 OPERATIVE PROCEDURE / FINDINGS: ??Procedure(s) with comments: RIGHT SULEMAN VILLASENOR - 33077 POST-OP DIAGNOSIS: * No post-op diagnosis entered * Collection Date->03/17/13 Collection Time-> 9:33 AM Specimen A->Other Anterior maxillary face Content Specimen B->Other Right Maxillary Tooth - Gross Only Specimen C->Other Right Maxillary Content Donta Orellana MD LAB - PATHOLOGY/CYTO LOGY ORDERABLES [address] [phone] * HCG BLOOD QUALITATIVE (03/17/2013 6:01 AM HEMODIALYSIS CHARGE NURSE) Only the most recent of2 resultswithin the time period is included. NEGATIVE NEGATIVE [facility] Comment:PERFORMED BY: ANDRES ANDINO 03/17/2013 6:01 AM HEMODIALYSIS CHARGE NURSE 03/17/2013 11:02 AM HEMODIALYSIS CHARGE NURSE Donta Orellana MD LAB - CHEMISTRY GEM ROJAS [address] [phone] * PATHOLOGY/GENETICS HISTORICAL-ONBASE (03/17/2013) Only the most recent of2 resultswithin the time period is included. 03/17/2013 Narrative [facility] - 04/21/2013 9:03 AM HEMODIALYSIS CHARGE NURSE Historical Provider LAB - CHEMISTRY O RDERABLES [facility] [address] [place] [address], [facility] * PROTEIN ELECTROPHORESIS WO INTERP BLOOD (02/25/2013 11:50 AM HEMODIALYSIS CHARGE NURSE) Interpretation Serum Protein SEE NOTE [facility] Comment: 1. Serum protein electrophoresis shows characteristic bands corresponding to albumin, alpha and beta globulins and polyclonal immunoglobulins. ?? 2. No monoclonal immunoglobulins detected. ??Non-secretory myeloma (NSM) and light chain only myeloma cannot be excluded on the basis of this result. ??Recommend serum free light chain measurements for complete evaluation of multiple myeloma. ??Measurement of serum free kappa and lambda immunoglobulin light chains can identify all patients with light chain only myeloma and up to 70% of patients with NSM. The serum free light chain measurement can be performed using this specimen by calling the Special Chemistry Laboratory at [phone]. Dr. Memo Emerson, PhD. Total Protein 7.2 6.0 - 8.3 g/dL [facility] Albumin 4.1 3.3 - 5.6 G/DL [facility] Alpha-1 Globulins 0.2 0.1 - 0.3 G/DL [facility] Alpha-2 Globulins 0.8 0.5 - 1.0 G/DL [facility] Beta Globulins 1.0 0.6 - 1.1 G/DL [facility] Gamma Globulins 1.1 0.6 - 1.6 G/DL [facility] Venous blood specimen (specimen) 02/25/2013 11:50 AM HEMODIALYSIS CHARGE NURSE 02/25/2013 1:02 PM HEMODIALYSIS CHARGE NURSE Chinyere Mejia FINANCIAL ASSISTANCE ADVISOR-PEDIATRIC SURGEON LAB - CHEMIS TRY ORDERABLES Performing Organization Address [facility]/ZIP Co de Phone Number [facility] [address] [place] [address], [facility] [phone] * CULTURE FUNGUS OTHER+FUNGUS SMEAR (02/09/2013 3:30 PM HEMODIALYSIS CHARGE NURSE) Culture Fungus-Other NO GROWTH FUNGI. [facility] Fluid specimen (specimen) SINUS / Unknown 02/09/2013 3:30 PM HEMODIALYSIS CHARGE NURSE 02/10/2013 12:45 PM HEMODIALYSIS CHARGE NURSE Narrative [facility] - 03/10/2013 11:21 AM HEMODIALYSIS CHARGE NURSE Right Maxillary Sinus Specimen Type->Body fluid, unspecified RT.MAXILLARY SINUS WRITTEN PER ANAEROBE AND FUN ADDED PER PROTCOL/JL 02/10/13 SPECIMEN COLLECTED ON 02/09/13,BUT DIDNT GET TO MICRO UNTIL 02/10/13/JL 02/10/13 SPECIMEN WERE IN O.R. ALL NIGHT PER AL IN O.R./JL 02/10/13 Donta Orellana MD LAB - MICROBIOLOGY O RDERABLES [address] [phone] * CULTURE AEROBIC (02/09/2013 3:30 PM HEMODIALYSIS CHARGE NURSE) Culture Routine LIGHT GROWTH OF GRAM POSITIVE COCCI IDENTIFIED [COAG NEG STAPH SPECIES]. ADDITIONAL MODERATE GROWTH OF GRAM NEGATIVE BACILLI IDENTIFIED [HAEMOPHILUS INFLUENZAE]. [facility] Culture Results [facility] Organism ID HAEMOPHILUS INFLUENZAE [facility] Comment:HAEMOPHILUS INFLUENZ AE Organism ID COAG NEG STAPH SPECIES [facility] Comment:COAG NEG STAPH SPECI ES Sinus SINUS / Unknown 02/09/2013 3 :30 PM HEMODIALYSIS CHARGE NURSE 02/10/2013 11:42 AM HEMODIALYSIS CHARGE NURSE Narrative [facility] - 02/13/2013 10:31 AM HEMODIALYSIS CHARGE NURSE Right Maxillary Sinus Specimen Type->Sinus RT.MAXILLARY SINUS WRITTEN PER SWABS/JL 02/10/13 GRAMSTAIN ADDED PER PROTOCOL AND ALSO SPECIMEN COLLECTED ON 02/09/13 BUT DIDNT GET TO MICRO UNTIL 02/10/13/JL 02/10/13 Organism Antibiotic Method Susceptibility Haemophilus influenzae Beta-Lactamase CULTURE AEROBIC Sensitive Comment: (R) RESISTANT RESULT: ORGANISM IS BETA-LACTAMASE POSITIVE. (S) SENSITIVE RESULT: ORGANISM IS BETA LACTAMASE NEGATIVE. BETA-LACTAMASE POSITIVE RESULTS PREDICT RESISTANCE TO AMOXICILLIN AND AMPICILLIN. RARE BETA-LACTAMASE NEGATIVE AMPICILLIN RESISTANT STRAINS OF HEMOPHILUS INFLUENZA EXIST, AND CANNOT BE RULED OUT WITH BETA-LACTAMASE TESTING. Coagulase negative Staphylococcus Clindamycin CULTURE AEROBIC 1: Intermediate Coagulase negative Staphylococcus Erythromycin CULTURE AEROBIC >=8: Resistant Coagulase negative Staphylococcus Gentamicin CULTURE AEROBIC <=0.5: Sensitive Coagulase negative Staphylococcus Levofloxacin CULTURE AEROBIC 0.25: Sensitive Coagulase negative Staphylococcus Oxacillin CULTURE AEROBIC <=0.25: Sensitive Coagulase negative Staphylococcus Tetracycline CULTURE AEROBIC <=1: Sensitive Coagulase negative Staphylococcus Trimethoprim-sulfametho xazole CULTURE AEROBIC <=10: Sensitive Coagulase negative Staphylococcus Vancomycin CULTURE AEROBIC 1: Sensitive Donta Orellana MD LAB - MICROBIOLOGY O BALDEMAR Performing Organization Address [facility] Co de Phone Number [address] [phone] * GRAM STAIN SMEAR (02/09/2013 3:30 PM HEMODIALYSIS CHARGE NURSE) Gram Stain MANY POLYMORPHONUCLEAR CELLS, MODERATE RED BLOOD CELLS, MANY GRAM POSITIVE COCCI IN PAIRS AND CHAINS, MANY GRAM NEGATIVE BACILLI, MANY GRAM POSITIVE BACILLI. GRAM STAINS ARE ROUTINELY SCREENED FOR THE PRESENCE OF POLYMORPHONUCLEAR CELLS. [facility] Culture Results [facility] Sinus 02/09/2013 3:30 PM HEMODIALYSIS CHARGE NURSE 02/10/2013 11:42 AM HEMODIALYSIS CHARGE NURSE Narrative [facility] - 02/10/2013 2:45 PM HEMODIALYSIS CHARGE NURSE RT.MAXILLARY SINUS WRITTEN PER SWABS/JL 02/10/13 GRAMSTAIN ADDED PER PROTOCOL AND ALSO SPECIMEN COLLECTED ON 02/09/13 BUT DIDNT GET TO MICRO UNTIL 02/10/13/JL 02/10/13 Donta Orellana MD LAB - MICROBIOLOGY O BALDEMAR Performing Organization Address [facility] [place] [address], [facility] [phone] * FUNGUS SMEAR (02/09/2013 3:30 PM HEMODIALYSIS CHARGE NURSE) Fungus Smear NO FUNGI SEEN. [facility] Fluid specimen (specimen) 02/09/2013 3:30 PM HEMODIALYSIS CHARGE NURSE 02/10/2013 12:45 PM HEMODIALYSIS CHARGE NURSE Narrative [facility] - 02/11/2013 1:14 PM HEMODIALYSIS CHARGE NURSE RT.MAXILLARY SINUS WRITTEN PER ANAEROBE AND FUN ADDED PER PROTCOL/JL 02/10/13 SPECIMEN COLLECTED ON 02/09/13,BUT DIDNT GET TO MICRO UNTIL 02/10/13/JL 02/10/13 SPECIMEN WERE IN O.R. ALL NIGHT PER AL IN O.R./JL 02/10/13 Donta Orellana MD LAB - MICROBIOLOGY O BALDEMAR Performing Organization Address [facility] Co de Phone Number [address] [phone] * CULTURE ANAEROBE (02/09/2013 3:30 PM HEMODIALYSIS CHARGE NURSE) Culture Anaerobic AEROBIC GROWTH COMPATIBLE WITH ROUTINE CULTURE. NO GROWTH ANAEROBES AFTER 48 HOURS. AFTER 72 HOURS HEAVY GROWTH OF ANAEROBIC GRAM NEGATIVE BACILLI IDENTIFIED [PREVOTELLA INTERMEDIA]. [facility] Culture Results [facility] Organism ID PREVOTELLA INTERMEDIA [facility] Comment:PREVOTELLA INTERMEDI A Fluid specimen (specimen) SINUS / Unknown 02/09/2013 3:30 PM HEMODIALYSIS CHARGE NURSE 02/10/2013 12:45 PM HEMODIALYSIS CHARGE NURSE Narrative [facility] - 02/16/2013 1:50 PM HEMODIALYSIS CHARGE NURSE Right Maxillary Sinus Specimen Type->Body fluid, unspecified RT.MAXILLARY SINUS WRITTEN PER ANAEROBE AND FUN ADDED PER PROTCOL/JL 02/10/13 SPECIMEN COLLECTED ON 02/09/13,BUT DIDNT GET TO MICRO UNTIL 02/10/13/ 02/10/13 SPECIMEN WERE IN O.R. ALL NIGHT PER AL IN O.R./JL 02/10/13 Organism Antibiotic Method Susceptibility Prevotella intermedia Beta-Lactamase CULTURE ANAEROBE Resistant Comment: (R) RESISTANT RESULT: ORGANISM IS BETA-LACTAMASE POSITIVE. (S) SENSITIVE RESULT: ORGANISM IS BETA LACTAMASE NEGATIVE. BETA-LACTAMASE POSITIVE RESULTS PREDICT RESISTANCE TO PENICILLIN AND AMPICILLIN. ANAEROBES CAN BE RESISTANT TO THESE 2 AGENTS BY MECHANISMS OTHER THAN BETA-LACTAMASE PRODUCTION, SO A NEGATIVE RESULT DOES NOT RULE OUT RESISTANCE. Donta Orellana MD LAB - MICROBIOLOGY O BALDEMAR Performing Organization Address [facility]/ZIP Co de Phone Number [address] [phone] Care Teams Wire Drawing Die Maker Relationship Specialty Start Date End Date Miguel Palm Jr., MD PCP - General 09/15/19
--- OUTSIDE RECORDS SUMMARY | 2024-04-28 13:17 | XMS_ITS | Clinical Summary ---
Author Organization [facility] Address [address] [place] [address] Phone Care Team Providers Care Line Welder Name Role Phone Aba Dahl MD Primary Care Provider Allergies Active Allergy Reactions Criticality Noted Date Comments Sulfa Antibiotics Rash 03/12/2020 Medications LISINOPRIL PO Take by mouth. Active azithromycin (Zithromax Z-Rodrigo) 250 MG TabletIndication s:Acute sinusitis, recurrence not specified, unspecified location 2 tab(s) daily for 1 day, then 1 tab(s) daily for days 2-5. 6 Tab 03/12/2020 Active fluticasone (FLONASE) 50 MCG/ACT SuspensionIndica tions:Acute sinusitis, recurrence not specified, unspecified location 1-2 Sprays by Nasal route daily. Use in each nostril as directed. 1 Bottle 03/12/2020 Active Active Problems No known active problems Encounters Date Type Department Care Team Description 03/22/2024 Telephone [facility] Call [facility] [address] [place] [phone] Aba Dahl MD Eye Problem from Last 3 Months Social History Tobacco Use Types Packs/Day Years Used Date Smoking Tobacco: Never Smokeless Tobacco: Never Comments No Sex and Gender Information Value Date Recorded Sex Assigned at Not on file Legal Sex Female 3:23 AM GARBAGE TRUCK HEL[employer] Gender Identity Not on file Sexual Orientation Not on file Last Filed Vital Signs Vital Sign Reading Time Taken Comments Blood Pressure 130/68 03/12/2020 4:44 PM G[employer]BAGE TR[employer] HELPER Pulse 97 03/12/2020 4:44 PM GARBAGE TRUCK HELPER Temperature 36.6 ??C (97.8 ??F) 03/12/2020 4:44 PM CS T Respiratory Rate 16 03/12/2020 4:44 PM GARBAGE TRUCK HELPER Oxygen Saturation 98% 03/12/2020 4:44 PM GARBAGE TRUCK HELPER Inhaled Oxygen Concentration - - Weight 89.8 kg (198 lb) 03/12/2020 4:44 PM GARBAGE TRUCK HELPER Height - - Body Mass Index - - Plan of Treatment Health Maintenance Due Date Last Done Comments Hepatitis C Virus (HCV) Screening 1976 TdaP Immunization 1976 Hepatitis B Immunization (1 of 3 - 19+ 3-dose series) 01/21/1995 Pap Smear 01/21/1997 Cervical Cancer Screening (CCS) 01/21/2006 HPV/Cotest 01/21/2006 Discussion re Starting/Frequ ency of Mammograms 2016 Colonoscopy 01/21/2021 Colorectal Cancer Screening 01/21/2021 Influenza Immunization (#1) 2023 SARS-COV-2 Immunization ( - 2023- season) 2023 Respiratory Syncytial Virus (RSV) Immunization (Adult) (1 - 1-dose 75+ series) 01/21/2051 Meningococcal Immunization (ACWY) Aged Out No longer eligible based on patient's age to complete this topic Pneumococcal Immunization Combined Aged Out No longer eligible based on patient's age to complete this topic Rotavirus Immunization Aged Out No lo nger eligible based on patient's age to complete this topic Care Teams Line Welder Relationship Specialty Start Date End Date Aba Dahl MD [address] [place] [address] PCP - General Family Medicine 03/12/20
--- OUTSIDE RECORDS SUMMARY | 2024-04-28 13:17 | XMS_ITS | Referral Summary ---
Author Organization [facility] Address [address] [facility] [place] [address] Care Team Providers Care Sales Account Coordinator Name Role Phone Néstor Ruiz MD, Miguel Logan Primary Care Provi sylvain Unavailable Source Comments [facility],non-owned Affiliates and Associated Physician Practices is amultiple site organization consisting of ambulatory clinics and hospital sitesin [place], [place], [place] and [place]. This disclosure is being madepursuant to the Care Everywhere program and may not contain all information available regarding this patient. Last updated 17.[facility] Allergies Active Allergy Reactions Criticality Noted Date [...] 10/16/2018 2:06 PM CDT Plan of Treatment Not on file Care Teams Sales Account Coordinator Relationship Specialty Start Date End Date Miguel Palm Jr., MD PCP - General 09/15/19
== END 2024-04-28 12:43 | disposition home or self-care (01) ==
PROVIDERS: PCP Family Medicine; Visit Provider Nurse Practitioner Women's Health
DX: R92.8 Other abnormal and inconclusive findings on diagnostic imaging of breast (principal)
CPT/HCPCS: 76641; 77062; 77066; G0279

== ENCOUNTER 2024-10-28 10:25 | Outpatient (CLI) | payer OTHER, SELFPAY ==
--- NOTE | ~2024-10-28 | MMUS_ITS ---
EXAMINATION: MM diagnostic khoi RT w veda, US breast RT limited HISTORY: Dense: The breasts are heterogeneously dense, which may obscure small masses TECHNIQUE: Additional 3-D tomosynthesis images of the right breast were performed and synthetic 2-D i mages were generated. CAD analysis was submitted and interpreted. High resolution Limited right breas t ultrasound was performed. COMPARISON: Comparison to multiple prior studies sequentially, with oldest reviewed study dated 10/2020. BREAST PARENCHYMAL COMPOSITION: Dense: The breasts are extremely dense, which lowers the sensitivity of mammography. FINDINGS: MAMMOGRAPHIC FINDINGS: There are no suspicious masses, calcifications or architectural distortion in the right breast. No si gnificant interval change. ULTRASOUND: Limited right breast ultrasound: At 3:00, 2 cm from the nipple there is an oval hypoechoic 8mm mass w ithout significant change from prior examination. There is parallel orientation, no internal vascular ity and no significant posterior features. At 9:00, 4 cm from the nipple there is a 6 mm cyst. IMPRESSION: 1. Stable likely benign right breast mass. 2. Recommend 6 month follow-up bilateral mammogram and Limited right breast ultrasound. BI-RADS category 3, probably benign findings. Reviewed, dictated and finalized at location B. IMPRESSION: 1. Stable likely benign right breast mass. 2. Recommend 6 month follow-up bilateral mammogram and Limited right breast ult rasound. BI-RADS category 3, probably benign findings.
--- OUTSIDE RECORDS SUMMARY | 2024-10-28 11:04 | XMS_ITS | Clinical Summary ---
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 Gender Identity Not on file Sexual Orientation Not on file Last Filed Vital Signs Vital Sign Reading Time Taken Comments Blood Pressure 130/68 03/12/2020 4:44 PM BOX TRUCK DRIVER Pulse 97 03/12/2020 4:44 PM BOX TRUCK DRIVER Temperature 36.6 C (97.8 F) 03/12/2020 4:44 PM BOX TRUCK DRIVER Respiratory Rate 16 03/12/2020 4:44 PM BOX TRUCK DRIVER Oxygen Saturation 98% 03/12/2020 4:44 PM BOX TRUCK DRIVER Inhaled Oxygen Concentration - - Weight 89.8 kg (198 lb) 03/12/2020 4:44 PM BOX TRUCK DRIVER Height - - Body Mass Index - - Plan of Treatment Health Maintenance Due Date Last Done Comments Hepatitis C Virus (HCV) Screening 1975 Mammogram 1975 TdaP Immunization 1976 Hepatitis B Immunization (1 of 3 - 19+ 3-dose series) 01/21/1995 Pap Smear 01/21/1997 Cervical Cancer Screening (CCS) 01/21/2006 HPV/Cotest 01/21/2006 Discussion re Starting/Frequ ency of Mammograms 2016 Cologuard 01/21/2021 Colonoscopy 01/21/2021 Colorectal Cancer Screening 01/21/2021 Immunochemical Fecal Occult Blood 01/21/2021 SARS-COV-2 Immunization (2023- season) 2023 Influenza Immunization (#1) 2024 Respiratory Syncytial Virus (RSV) Immunization (Adult) (1 - 1-dose 75+ series) 01/21/2051 Human Papillomavirus (HPV) Immunization Aged Out No longer eligible b ased on patient's age to complete this topic Meningococcal Immunization (ACWY) Aged Out No longer eligible based on patient's age to complete this topic Pneumococcal Immunization Combined Aged Out No longer eligible based on patient's age to complete this topic Rotavirus Immunization Aged Out No lo nger eligible based on patient's age to complete this topic Care Teams Investigations Manager Relationship Specialty Start Date End Date Aba Dahl MD [address] [facility] [address] [place] [address] PCP - General Family Medicine 03/12/20
--- OUTSIDE RECORDS SUMMARY | 2024-10-28 11:04 | XMS_ITS | Clinical Summary ---
Author Organization [facility] Address [address] [place] [address] Care Team Providers Care Lead Mechanic Name Role Phone Néstor Ruiz MD, Miguel Logan Primary Care Provi sylvain Unavailable Source Comments [facility],non-owned Affiliates and Associated Physician Practices is amultiple site organization consisting of ambulatory clinics and hospital sitesin [place], [place], [place] and [place]. This disclosure is being madepursuant to the Care Everywhere program and may not contain all information available regarding this patient. Last updated 17.[facility] Allergies Active Allergy Reactions Criticality Noted Date Comments Sulfa Drugs Rash Medium 05/21/2017 Medications * Be aware that medications may not be up to date on this document. Alwaysverify current medications with the patient. No known medications Family History Medical History Relation Name Comments Diabetes - Type 2 Father Relation Name Status Comments Father Mother Alive Social History Tobacco Use Types Packs/Day Years Used Date Smoking Tobacco: Never Smokeless Tobacco: Never Comments No Sex and Gender Information Value Date Recorded Sex Assigned at Not on file Legal Sex Female 5:02 PM CDT Gender Identity Not on file Sexual Orientation Not on file Last Filed Vital Signs Vital Sign Reading Time Taken Comments Blood Pressure 120/88 10/16/2018 2:06 PM CDT Pulse 75 10/16/2018 2:06 PM CDT Temperature 37.2 C (98.9 F) 10/16/2018 2:06 PM CDT Respiratory Rate 16 10/16/2018 2:06 PM CDT Oxygen Saturation 98% 10/16/2018 2:06 PM CDT Inhaled Oxygen Concentration - - Weight 85.7 kg (189 lb) 10/16/2018 2:06 PM CDT Height 163.8 cm (5' 4.5) 10/16/2018 2:06 PM CDT Body Mass Index [...] SCREENING 1976 LIPID TESTING 1976 MAMMOGRAM 1976 HIV SCREENING 01/21/1991 HEPATITIS C SCREENING 01/17/1994 DTAP/TDAP/TD VACCINES (1 - Tdap) 01/21/1995 HEPATITIS B VACCINE (1 of 3 - 19+ 3-dose series) 01/21/1995 PAP SMEAR 01/21/1997 SCREENING FOR DIABETES 10/16/2018 COVID-19 VACCINE (1 - 2023-2 5 season) 2023 DEPRESSION SCREENING 04/01/2024 INFLUENZA VACCINE (#1) 2024 ZOSTER VACCINE (1 of 2) 01/21/2026 HIB VACCINE Aged Out No longer eligi ble based on patient's age to complete this topic HPV VACCINE Aged Out No longer eligi ble based on patient's age to complete this topic MENINGOCOCCAL (Group B) VACC INE SHARED DECISION-MAKING Aged Out No longer eligibl e based on patient's age to complete this topic MENINGOCOCCAL GROUPS A/C/Y/W VACCINE Aged Out No longer eligible b ased on patient's age to complete this topic PNEUMOCOCCAL VACCINE Aged Out No long er eligible based on patient's age to complete this topic Insurance [facility] Member Subscriber Plan / Payer (Ef fective 2017-Present) Name:Omayra Delaney Relation to Subscriber:Spouse Name:PAUL DELANEY Date of :1977 (Home) Address: [address] [place] [address] Payer ID:[id number] (NAIC) Type:O Address: [place] [id number] Care Teams Lead Mechanic Relationship Specialty Start Date End Date Miguel Palm Jr., MD PCP - General 09/15/19
== END 2024-10-28 10:26 | disposition home or self-care (01) ==
LOC: ANHIMG 10:34
PROVIDERS: PCP Family Medicine; Visit Provider Obstetrics & Gynecology Gynecology
DX: N63.10 Unspecified lump in the right breast, unspecified quadrant (principal); R92.8 Other abnormal and inconclusive findings on diagnostic imaging of breast
CPT/HCPCS: 76642; 77061; 77065; G0279